=== PATIENT | male | born 2000 | race Caucasian/White ===

== ENCOUNTER 2024-10-14 15:46 | Emergency (ER) | payer OTHER, SELFPAY ==
[2024-10-14 16:06] VITALS: BP 130/63; PULSE 60; RESP 16; TEMP 36.9; O2SAT 98; BMI 25.0
--- NOTE | 2024-10-14 16:14 | DI.RAD.S_ITS ---
PROCEDURE: XR SHOULDER RT MIN 2V INDICATIONS: Fall while snowboarding, R shoulder pain and reduced ROM TECHNIQUE: 3 views of the shoulder were acquired. COMPARISON: None. FINDINGS: Bones: No acute displaced fracture or dislocation Soft tissues: No suspicious calcifications. IMPRESSION: No acute radiographic abnormality. If there is high concern for further derangement, consider MRI evaluation. Dictated by: Imtiaz Hennessy M.D. on 10/14/2024 at 16:43 Approved by: Imtiaz Hennessy M.D. on 10/14/2024 at 16:46
--- NOTE | 2024-10-14 17:12 | ED.UPPEXIN ---
HPI - Extremity Injury (Upper) <Jessica Santana PA-C - Last Filed: 10/14/24 19:36> General Chief Complaint: Extremity Injury, Upper Stated Complaint: rt shoulder px, x2days Time Seen by Provider: 10/14/24 17:10 Source: patient Mode of arrival: Ambulatory History of Present Illness HPI narrative: Mr. Romero is a pleasant 23-year-old male, active duty [place], with a past medical history of right collarbone fracture presents to the emergency department for right shoulder pain after a snowboard fall that occurred yesterday. Patient states while snowboarding he had a fall directly onto the right shoulder and has had some right shoulder pain since then. Did not come to the ER until today because he got back late last night. States that he does not have any other areas of pain or injury. Reports that right shoulder pain is on the front of the shoulder however pain is worsened with abduction of the shoulder. No pain of the right lower arm. He last took 800 mg of ibuprofen around 9:00 a.m. this morning. No other concerns at this time. Related Data Previous Rx's Medication Instructions Recorded acetaminophen 500 mg tablet 1,000 mg (2 x 500 mg) PO Q8HR #20 10/14/24 (Tylenol Extra Strength) tabs ibuprofen 600 mg tablet (IBU) 600 mg PO Q8H PRN pain #20 tabs 10/14/24 Review of Systems <Jessica Santana PA-C - Last Filed: 10/14/24 19:36> Review of Systems ROS Unobtainable: All systems reviewed & are unremarkable except as noted in HPI and below Exam <Jessica Santana PA-C - Last Filed: 10/14/24 19:36> Narrative Exam Narrative: GENERAL: 23 year old patient appears stated age. Well-developed patient, in no acute distress. HEAD: Atraumatic. Normocephalic. EYES: Extraocular motions intact. No scleral icterus. No injection or drainage. ENT: Nose without bleeding, purulent drainage. NECK: Trachea midline. Cervical ROM intact. CARDIOVASCULAR: Regular rate and rhythm. Strong radial pulses bilaterally. RESPIRATORY: ?Nonlabored respirations. ?Speaking in clear, full sentences. ?Clear to auscultation. EXTREMITIES: Tenderness to palpation of anterior right shoulder/AC joint. No obvious deformities. No tenderness to palpation of bilateral collar bones. Pain with active abduction of right shoulder, limited ROM. Passive abduction right shoulder with increased ROM. Right-sided pain with empty can test. BACK: Nontender without deformity or crepitance. No flank tenderness. NEURO: AOx3. ?Clear speech. ?Moves all 4 extremities appropriately. Sensation and strength intact in the distribution of the median, ulnar, radial nerves bilaterally. SKIN: No rash or erythema of visible areas Initial Vital Signs Initial Vital Signs: Vital Signs Temperature 98.4 F 10/14/24 16:06 Pulse Rate 60 10/14/24 16:06 Respiratory Rate 16 10/14/24 16:06 Blood Pressure 130/63 10/14/24 16:06 Pulse Oximetry 98 10/14/24 16:06 Oxygen Delivery Method Room Air 10/14/24 16:06 <January Darnell DO - Last Filed: 10/19/24 02:50> Initial Vital Signs Initial Vital Signs: Vital Signs Temperature 98.4 F 10/14/24 16:06 Pulse Rate 60 10/14/24 16:06 Respiratory Rate 16 10/14/24 16:06 Blood Pressure 130/63 10/14/24 16:06 Pulse Oximetry 98 10/14/24 16:06 Oxygen Delivery Method Room Air 10/14/24 16:06 Course <Jessica Santana PA-C - Last Filed: 10/14/24 19:36> Orders Ordered: Discontinued Medications Acetaminophen (Acetaminophen 325 Mg Tablet) 975 mg PO NOW ONE Stop: 10/14/24 17:23 Last Admin: 10/14/24 17:27 Dose: 975 mg Documented By: LICO Ibuprofen (Ibuprofen 400 Mg Tablet) 400 mg PO NOW ONE Stop: 10/14/24 17:23 Last Admin: 10/14/24 17:27 Dose: 400 mg Documented By: LICO Vital Signs Vital signs: Vital Signs - 8 hr 10/14/24 16:06 10/14/24 17:38 Temperature 98.4 F Pulse Rate 60 60 Respiratory Rate 16 16 Blood Pressure 130/63 Pulse Oximetry 98 100 Oxygen Delivery Method Room Air <January Darnell DO - Last Filed: 10/19/24 02:50> Orders Ordered: Discontinued Medications Acetaminophen (Acetaminophen 325 Mg Tablet) 975 mg PO NOW ONE Stop: 10/14/24 17:23 Last Admin: 10/14/24 17:27 Dose: 975 mg Documented By: LICO Ibuprofen (Ibuprofen 400 Mg Tablet) 400 mg PO NOW ONE Stop: 10/14/24 17:23 Last Admin: 10/14/24 17:27 Dose: 400 mg Documented By: LICO Vital Signs Vital signs: Vital Signs - 8 hr 10/14/24 16:06 10/14/24 17:38 Temperature 98.4 F Pulse Rate 60 60 Respiratory Rate 16 16 Blood Pressure 130/63 Pulse Oximetry 98 100 Oxygen Delivery Method Room Air MDM - Extremity Injury (Upper) <Jessica Santana PA-C - Last Filed: 10/14/24 19:36> Medical Records Attestation: I reviewed the patient's medical records. Imaging Data Right Shoulder X-Ray: Radiologist's Impression: PROCEDURE: XR SHOULDER RT MIN 2V INDICATIONS: Fall while snowboarding, R shoulder pain and reduced ROM TECHNIQUE: 3 views of the shoulder were acquired. COMPARISON: None. FINDINGS: Bones: No acute displaced fracture or dislocation Soft tissues: No suspicious calcifications. IMPRESSION: No acute radiographic abnormality. If there is high concern for further derangement, consider MRI evaluation. [facility] Narrative Medical decision making narrative: 23 year-old male, active duty [place], with a past medical history of right collarbone fracture presents to the emergency department for right shoulder pain after a snowboard fall that occurred yesterday. Differential diagnosis includes but is not limited to right shoulder fracture, right AC joint separation, right rotator cuff injury, shoulder sprain, shoulder strain, etc. On exam patient is in no acute distress, nontoxic appearing, vital signs within normal limits. He has some tenderness to palpation of the anterior right shoulder and pain with active abduction of the right shoulder, positive right empty can test with some reproducible pain and weakness. Right arm neurovascularly intact with sensation intact to light touch and strength intact in the distribution of the median, ulnar, radial nerves bilaterally. Right shoulder x-ray obtained in triage reveals no fracture. Concern for shoulder sprain/rotator cuff injury. Patient was placed into a right arm sling for comfort and advised to follow up with Orthopedics. He was prescribed ibuprofen and Tylenol and recommended rice therapy. First dose of ibu/apap givenin ED. Patient verbalized understanding of all information and is agreeable to the plan. He is stable for discharge home. Discharge Plan Departure Patient Disposition: Home Clinical Impression: Sprain of right shoulder Qualifiers: Encounter type: initial encounter Shoulder sprain type: unspecified sprain Qualified Code(s): S43.401A - Unspecified sprain of right shoulder joint, initial encounter Instructions: DI for Shoulder Sprain Activity Restrictions/Additional Instructions: Please take Ibuprofen (Motrin/Advil) or Acetaminophen (Tylenol) for pain. These are available over the counter. You may take Ibuprofen 600 mg every 8 hours with food for pain. You may also take Acetaminophen 650 mg every 4-6 hours for pain. Do not exceed 3000 mg of Tylenol a day as this can cause liver damage. Do not drink alcohol with either of these medications. Please use RICE therapy for your pain in addition to ibuprofen/acetaminophen. Rest the painful area. Ice the area of pain/swelling for at least 15 minutes, 4x a day. Compress the area of swelling using a brace, wrap, or splint if applied. Elevate the painful or swollen extremity by supporting it above the level of the heart with pillows when sitting or laying. Today you were evaluated for right shoulder pain. Your x-ray does not reveal any shoulder fracture. However you can still have injured her rotator cuff or other important ligaments in the shoulder. Please wear the right arm sling for comfort however you can remove this to shower and gently stretch the arm. Follow up with Orthopedics for further evaluation. You can call [facility] at [phone] to schedule an appointment with Dr. Ramirez or another physician. Please follow up with your primary care doctor within the next 2-3 days for ER follow-up. (If you do not have a PCP you can call [phone]. ?to schedule an appointment with an [facility] Primary Care Provider) IF YOU DEVELOP ANY NEW OR WORSENING SYMPTOMS, RETURN TO THE ER! Please read the attached instructions, they highlight more specific treatments and interventions for you at home. Thank you for letting me participate in your care, Jessica Santana PA-C Prescriptions: New ibuprofen [IBU] 600 mg tablet 600 mg PO Q8H PRN (Reason: pain) Qty: 20 0RF acetaminophen [Tylenol Extra Strength] 500 mg tablet 1,000 mg PO Q8HR Qty: 20 0RF Referrals: Provider,Светлана DIAZ [Primary Care Provider] - Stand Alone Forms: Patient Portal/API/Survey, Work Release Note ED Sign-out <January Darnell, DO - Last Filed: 10/19/24 02:50> Cosign ED Attending Cosignature Attestation: I was immediately available in the department for consultation.
[2024-10-14] MEDS: ACETAMINOPHEN 325 MG TABLET 975 MG PO (17:27)
[2024-10-14] MEDS: IBUPROFEN 400 MG TABLET PO (17:27)
--- NOTE | 2024-10-14 17:36 | PC.NURSE ---
Pt reports falling on shoulder while snowboarding. Pt states he is able to move his arm when isolating his shoulder. Denies pain to palpation to collar bone. No obvious deformities noted. CMS intact.
[2024-10-14 17:38] VITALS: PULSE 60; RESP 16; O2SAT 100
== END 2024-10-14 17:39 | disposition home or self-care (01) ==
PROVIDERS: Emergency Provider Physician Assistant
DX: S43.401A Unspecified sprain of right shoulder joint, initial encounter (principal); V00.311A Fall from snowboard, initial encounter
CPT/HCPCS: 73030; 99283

== ENCOUNTER 2025-01-31 08:48 | Emergency (ER) | payer OTHER, SELFPAY ==
[2025-01-31 09:00] VITALS: BP 137/59; PULSE 64; RESP 18; TEMP 36.4; O2SAT 98; BMI 26.6
[2025-01-31 09:43] LABS: RBC Urine 10-30/HPF (0-5/HPF); Urine Volume 10mL (spun)
[2025-01-31 09:44] LABS: Bacteria Urine None Seen; Culture Indicated Urine Cult Not Indicated; Squamous Epithelial Cell Urine 0-1 /HPF (0-5/HPF); WBC Urine 0-1/HPF (0-5/HPF)
--- NOTE | 2025-01-31 10:13 | ED_ITS ---
HPI - Male Genitourinary General Chief complaint: Urogenital-Male Stated complaint: blood in urine 7 days Time Seen by Provider: 01/31/25 09:39 History of Present Illness HPI Narrative: 24-year-old gentleman history of kidney stones presents with hematuria today and also we 1 week prior to this that resolved on its own then. Patient denies nausea, vomiting, fever, chills, penile discharge, testicular pain, dysuria, urgency, or frequency. Patient was able to passed kidney stones in the remote past and feels similar in presentation today. Other than what is stated 14 point review of system is negative Related Data Previous Rx's Medication Instructions Recorded acetaminophen 500 mg tablet 1,000 mg (2 x 500 mg) PO Q8HR #20 10/14/24 (Tylenol Extra Strength) tabs ibuprofen 600 mg tablet (IBU) 600 mg PO Q8H PRN pain #20 tabs 10/14/24 Allergies Allergy/AdvReac Type Severity Reaction Status Date / Time No Known Drug Allergies Allergy Verified 01/31/25 09:00 Review of Systems Review of Systems ROS Unobtainable: All systems reviewed & are unremarkable except as noted in HPI and below Patient History Social History Smoking Status: Current every day smoker Smoking Status: Current every day smoker tobacco type: cigarettes and vaping Exam Narrative Exam Narrative: GENERAL: [24] year old patient appears stated age. Well-developed patient, in mild distress. HEAD: Atraumatic. Normocephalic. EYES: Pupils equal round and reactive. Extraocular motions intact. No scleral icterus. No injection or drainage. NECK: Trachea midline. Non tender CARDIOVASCULAR: Regular rate and rhythm without murmurs, gallops, or rubs. RESPIRATORY: Clear to auscultation. Breath sounds equal bilaterally. No wheezes, rales, or rhonchi. GASTROINTESTINAL: Abdomen soft, non-tender, nondistended. EXTREMITIES: No edema or joint tenderness. BACK: Nontender without deformity or crepitance. No flank tenderness. NEURO: AOx3. SKIN: No rash or erythema of visible areas Initial Vital Signs Initial Vital Signs: Vital Signs Temperature 97.5 F L 01/31/25 09:00 Pulse Rate 64 01/31/25 09:00 Respiratory Rate 18 01/31/25 09:00 Blood Pressure 137/59 L 01/31/25 09:00 Pulse Oximetry 98 01/31/25 09:00 Oxygen Delivery Method Room Air 01/31/25 09:00 Course Orders Ordered: ED Orders 01/31/25 09:12 Chlamydia Gonorrhea PCR -URINE Stat Urine Microscopic Stat 01/31/25 10:13 CT abdomen pelvis wo con Stat 01/31/25 10:30 CBC Auto Diff [Complete Blood Count AUTO DIFF] Stat CMP [Comprehensive Metabolic Panel] Stat Ondansetron HCl (Ondansetron 4 Mg/2 Ml Inj) 4 mg IV NOW PRN PRN Reason: Nausea And Vomiting Ondansetron HCl (Ondansetron 4 Mg Odt) 4 mg SL NOW PRN PRN Reason: Nausea And Vomiting Vital Signs Vital signs: Vital Signs - 8 hr 01/31/25 09:00 Temperature 97.5 F L Pulse Rate 64 Respiratory Rate 18 Blood Pressure 137/59 L Pulse Oximetry 98 Oxygen Delivery Method Room Air MDM - Male Genitourinary Lab Data 01/31/25 10:30 01/31/25 10:30 Labs: Lab Results 01/31/25 01/31/25 Range/Units 09:12 10:30 WBC 4.6 (4.5-11.0) X10^3/uL RBC 5.11 (4.5-5.9) X10^6/uL Hgb 15.1 (13.5-17.5) g/dL Hct 44.7 (41-53) % MCV 87.4 (80-100) fL MCH 29.5 (26-34) PG MCHC 33.7 (30-36) % RDW 14.1 (11.6-14.8) % Plt Count 164 (150-400) X10^3/uL Neut % (Auto) 49.8 L (50-75) % Lymph % (Auto) 38.4 (25-40) % Logan % (Auto) 8.4 (3-14) % Eos % (Auto) 2.7 (2-4) % Baso % (Auto) 0.7 (0-2) % Neut # (Auto) 2300 (0962-5049) /uL Lymph # (Auto) 1800 (2226-3717) /uL Logan # (Auto) 400 (0-900) /uL Eos # (Auto) 100 (0-450) /uL Baso # (Auto) 0 (0-100) /uL Sodium 138 (137-145) mmol/L Potassium 4.2 (3.4-5.1) mmol/L Chloride 104 (98-107) mmol/L Carbon Dioxide 27 (22-32) mmol/L BUN 19 (9-20) mg/dL Creatinine 1.05 (0.66-1.25) mg/dL Estimated GFR > 60 (>60) mL/min BUN/Creatinine Ratio 18.1 (6-22) Glucose 85 (70-99) mg/dL Calcium 8.9 (8.4-10.2) mg/dL Total Bilirubin 0.8 (0.2-1.3) mg/dL AST 38 (17-59) IU/L ALT 33 (<50) IU/L Alkaline Phosphatase 50 (38-126) U/L Total Protein 7.1 (6.3-8.2) g/dL Albumin 4.4 (3.5-5.0) g/dL Globulin 2.7 (1.7-4.1) g/dL Albumin/Globulin Ratio 1.6 (1.0-2.8) Urine RBC 10-30/hpf H (0-5/HPF) Urine WBC 0-1/hpf (0-5/HPF) Ur Squamous Epith Cells 0-1 /hpf (0-5/HPF) Urine Bacteria None seen (None) Ur Culture Indicated? Cult not indicated Vol Urine Centrifuged 10ml (spun) Urine Dip Bedside Urine Glucose Negative Bedside Urine Bilirubin - Negative Bedside Urine Ketone - Negative Urine Specific [place] 1.015 Bedside Urine Occult Blood +++ Bedside Urine pH 6.0 Bedside Urine Protein - Negative Bedside Urine Urobilinogen - Negative Bedside Urine Nitrite - Negative Bedside Urine Leukocytes - Negative Esterase Imaging Data CT scan - abdomen/pelvis: Radiologist's Impression: [address] [address] [address] Scan Report Signed Patient: Urban Romero MR#: [id number] : 2000 Acct:[id number] Age/Sex: 24 / M Date of Service: 01/31/25 Loc: ED Accession Number: [id number] Procedure: CT abdomen pelvis wo con Ordering Provider: Victorino De Los Santos D.O. PROCEDURE: CT ABDOMEN PELVIS WO CON INDICATIONS: kidney stone TECHNIQUE: Axial sections were acquired from the lung bases to the pubic symphysis. Coronal and sagittal reformats were performed. For radiation dose reduction, the following was used: automated exposure control, adjustment of mA and/or kV according to patient size. COMPARISON: None. FINDINGS: Image quality: Diagnostic. Lower Chest: No significant findings. URINARY: Right Kidney: No stones or hydronephrosis. Right Ureter: No hydroureter. Left Kidney: No stones or hydronephrosis. Left Ureter: No hydroureter. Bladder: Normal wall thickness. No stones. ABDOMEN: Liver: No contour-deforming solid mass. Gallbladder: No radiopaque gallstones or wall thickening. Biliary ducts: No biliary dilation. Pancreas: No ductal dilation. Spleen: Size is within normal limits. Adrenal Glands: No adrenal nodules. Stomach and Bowel: Normal colonic caliber, without significant wall thickening. Normal appendix. Peritoneum: No abnormal intraperitoneal fluid. No free air. Ventral Wall: No hernia. Abdominal Nodes: No enlarged retroperitoneal or mesenteric lymph nodes. Vessels: Aorta and inferior vena cava are normal in size. PELVIS: Pelvic Organs: Unremarkable. Pelvic Nodes: Unremarkable. Miscellaneous: No inguinal hernias are seen. Bones: Unremarkable. IMPRESSION: No obstructing stones or hydronephrosis. No acute findings within the abdomen or pelvis. Dictated by: Atul Elloitt M.D. on 01/31/2025 at 10:51 Approved by: Atul Elliott M.D. on 01/31/2025 at 10:55 MDM Narrative Medical decision making narrative: All vital signs nurse triage note medication list imaging studies in all ER visits reviewed. Patient last had sexual intercourse over 2 weeks ago no penile discharge no testicular pain. Patient does work out strenuously including yesterday and he had hematuria episode x2 today starting at 6:00 a.m. STD panel sent off. Case discussed with Dr. Mooney urologist on-call who entered team differential diagnosis of December hematuria and strenuous exercise including sexual intercourse as cause of hematuria but wanted to follow up with him as outpatient for a cystoscopy. Discharge Plan Departure Patient Disposition: Home Clinical Impression: Hematuria Qualifiers: Hematuria type: idiopathic Glomerular morphologic changes: unspecified whether glomerular morphologic changes present Qualified Code(s): N02.9 - Recurrent and persistent hematuria with unspecified morphologic changes Instructions: DI for Hematuria Activity Restrictions/Additional Instructions: Return with new or worsening symptoms. Keep hydrated. Follow up with Dr. Mooney urologist for outpatient cystoscopy. Prescriptions: No Action ibuprofen [IBU] 600 mg tablet 600 mg PO Q8H PRN (Reason: pain) Qty: 20 0RF acetaminophen [Tylenol Extra Strength] 500 mg tablet 1,000 mg PO Q8HR Qty: 20 0RF Referrals: Provider,Светлана DIAZ [Primary Care Provider] - Kris Mooney MD [Physician] - (hematuria) Stand Alone Forms: Patient Portal/API/Survey
[2025-01-31 10:49] LABS: Add Manual Diff / Slide Review NO; Basophils Absolute Auto 0 /uL (0-100); Basophils Percent Auto 0.7 % (0-2); Eosinophils Absolute Auto 100 /uL (0-450); Eosinophils Percent Auto 2.7 % (2-4); Hematocrit 44.7 % (41-53); Hemoglobin 15.1 g/dL (13.5-17.5); Lymphocytes Absolute Auto 1800 /uL (1100-4500); Lymphocytes Percent Auto 38.4 % (25-40); Mean Corpuscular HGB Conc 33.7 % (30-36); Mean Corpuscular Hemoglobin 29.5 PG (26-34); Mean Corpuscular Volume 87.4 fL (80-100); Monocytes Absolute Auto 400 /uL (0-900); Monocytes Percent Auto 8.4 % (3-14); Neutrophils Absolute Auto 2300 /uL (1500-7000); Neutrophils Percent Auto 49.8 % (50-75); Platelet Count 164 X10^3/uL (150-400); Red Blood Cell Count 5.11 X10^6/uL (4.5-5.9); Red Cell Distribution Width 14.1 % (11.6-14.8); White Blood Cell Count 4.6 X10^3/uL (4.5-11.0)
[2025-01-31 11:11] LABS: Alanine Aminotransferase 33 IU/L (<50); Albumin 4.4 g/dL (3.5-5.0); Albumin Globulin Ratio 1.6 (1.0-2.8); Alkaline Phosphatase 50 U/L (38-126); Aspartate Aminotransferase 38 IU/L (17-59); BUN Creatinine Ratio 18.1 (6-22); Bilirubin Total 0.8 mg/dL (0.2-1.3); Blood Urea Nitrogen 19 mg/dL (9-20); Calcium 8.9 mg/dL (8.4-10.2); Carbon Dioxide 27 mmol/L (22-32); Chloride 104 mmol/L (98-107); Estimated Glomerular Filt Rate > 60 mL/min (>60); Globulin 2.7 g/dL (1.7-4.1); Glucose 85 mg/dL (70-99); HEMOLYSIS < 15 (0-50); Potassium 4.2 mmol/L (3.4-5.1); Sodium 138 mmol/L (137-145); Total Protein 7.1 g/dL (6.3-8.2)
[2025-01-31 12:07] VITALS: BP 137/73; PULSE 60; RESP 18; O2SAT 99
[2025-01-31 13:14] LABS: Urine N gonorrhoeae NOT DETECTED
[2025-01-31 13:15] LABS: Urine Chlamydia NOT DETECTED
== END 2025-01-31 12:08 | disposition home or self-care (01) ==
PROVIDERS: Emergency Provider Family Medicine
DX: N02.9 Recurrent and persistent hematuria with unspecified morphologic changes (principal); Z87.442 Personal history of urinary calculi
CPT/HCPCS: 36415; 74176; 80053; 81003; 81015; 85025; 87491; 87591; 99281; 99284

== ENCOUNTER 2025-02-02 10:52 | Emergency (ER) | payer OTHER, SELFPAY ==
[2025-02-02 10:57] VITALS: BP 142/65; PULSE 72; RESP 17; TEMP 36.6; O2SAT 97; BMI 26.6
[2025-02-02 11:17] LABS: Add Manual Diff / Slide Review NO; Basophils Absolute Auto 0 /uL (0-100); Basophils Percent Auto 0.5 % (0-2); Eosinophils Absolute Auto 100 /uL (0-450); Eosinophils Percent Auto 1.4 % (2-4); Hematocrit 45.8 % (41-53); Hemoglobin 15.5 g/dL (13.5-17.5); Lymphocytes Absolute Auto 1100 /uL (1100-4500); Lymphocytes Percent Auto 28.9 % (25-40); Mean Corpuscular HGB Conc 33.9 % (30-36); Mean Corpuscular Hemoglobin 29.7 PG (26-34); Mean Corpuscular Volume 87.6 fL (80-100); Monocytes Absolute Auto 200 /uL (0-900); Monocytes Percent Auto 4.5 % (3-14); Neutrophils Absolute Auto 2500 /uL (1500-7000); Neutrophils Percent Auto 64.7 % (50-75); Platelet Count 163 X10^3/uL (150-400); Red Blood Cell Count 5.22 X10^6/uL (4.5-5.9); Red Cell Distribution Width 14.2 % (11.6-14.8); White Blood Cell Count 3.8 X10^3/uL (4.5-11.0)
[2025-02-02 11:32] LABS: Alanine Aminotransferase 33 IU/L (<50); Albumin 4.7 g/dL (3.5-5.0); Albumin Globulin Ratio 1.7 (1.0-2.8); Alkaline Phosphatase 51 U/L (38-126); Aspartate Aminotransferase 36 IU/L (17-59); Bilirubin Total 0.9 mg/dL (0.2-1.3); Blood Urea Nitrogen 17 mg/dL (9-20); Calcium 9.4 mg/dL (8.4-10.2); Carbon Dioxide 29 mmol/L (22-32); Chloride 101 mmol/L (98-107); Estimated Glomerular Filt Rate > 60 mL/min (>60); Globulin 2.8 g/dL (1.7-4.1); Glucose 102 mg/dL (70-99); HEMOLYSIS < 15 (0-50); Lipase 50 U/L (23-300); Potassium 4.1 mmol/L (3.4-5.1); Sodium 139 mmol/L (137-145); Total Protein 7.5 g/dL (6.3-8.2)
--- NOTE | 2025-02-02 12:01 | DI.US.S_ITS ---
PROCEDURE: US SCROTUM INDICATIONS: right testicle pain and hematuria TECHNIQUE: Real-time scanning was performed of the scrotum and testicles, with image documentation. Color and pulse Doppler interrogation was performed of both testicles. COMPARISON: None. FINDINGS: Right: Testicle is normal in size at 4.4 x 2.4 x 2.9 cm, and homogenous in echotexture. Epididymis is normal in overall size and morphology. No hydrocele or varicoceles. Overlying scrotal skin is normal in thickness. Left: Testicle is normal in size at 4.3 by 1.7 x 3.0 cm, and homogeneous in echotexture. Epididymis is normal in overall size and morphology. No hydrocele or varicoceles. Overlying scrotal skin is normal in thickness. Scrotal tiffany is incidentally noted. Doppler: Color and pulse Doppler demonstrate normal and symmetric arterial flow in both testicles. IMPRESSION: No torsion at time of exam. Intermittent torsion cannot be excluded. No hydrocele. Dictated by: Mary De Santiago M.D. on 02/02/2025 at 13:21 Approved by: Mary De Santiago M.D. on 02/02/2025 at 13:22
--- NOTE | 2025-02-02 12:02 | DI.US.S_ITS ---
PROCEDURE: US ABDOMEN LIMITED INDICATIONS: RUQ pain TECHNIQUE: Real-time focused scanning was performed of the abdomen, with image documentation. COMPARISON: [facility], CT, CT ABDOMEN PELVIS WO CON, 01/31/2025, 10:30. FINDINGS: Liver measures 16.3 cm. Gallbladder is unremarkable. No stones or wall thickening. Common bile duct measures 3 mm. Visualized portions the pancreas are unremarkable. IMPRESSION: Unremarkable exam. Dictated by: Mary De Santiago M.D. on 02/02/2025 at 13:23 Approved by: Mary De Santiago M.D. on 02/02/2025 at 13:23
[2025-02-02 12:17] LABS: Bacteria Urine None Seen; Culture Indicated Urine Cult Not Indicated; RBC Urine 1-5/HPF (0-5/HPF); Squamous Epithelial Cell Urine 0-1 /HPF (0-5/HPF); Urine Volume 10mL (spun); WBC Urine None Seen (0-5/HPF)
--- NOTE | 2025-02-02 14:23 | ED_ITS ---
HPI - Male Genitourinary General Chief complaint: Urogenital-Male Stated complaint: Blood in urine Time Seen by Provider: 02/02/25 13:53 History of Present Illness HPI Narrative: Patient is a 24-year-old male here for follow-up of hematuria. Patient reports symptoms for at least 2 weeks. He was evaluated on 01/31 for similar symptoms and workup was unremarkable including STD testing, CT KUB. He does have a history of a prior kidney stone that he passed on his own. He reports being a small clot of blood on the and then again yesterday. He also reports right testicular pain also ongoing for the last 2 weeks. He denies any foreign body in the penis. He denies fever. He denies any nausea/vomiting/abdominal pain/diarrhea. No history of STDs. Patient was told to follow up with his PCP for referral to a urologist and is in the process of getting that referral. Related Data Previous Rx's Medication Instructions Recorded acetaminophen 500 mg tablet 1,000 mg (2 x 500 mg) PO Q8HR #20 10/14/24 (Tylenol Extra Strength) tabs ibuprofen 600 mg tablet (IBU) 600 mg PO Q8H PRN pain #20 tabs 10/14/24 Allergies Allergy/AdvReac Type Severity Reaction Status Date / Time No Known Drug Allergies Allergy Verified 02/02/25 11:01 Review of Systems Review of Systems ROS Unobtainable: All systems reviewed & are unremarkable except as noted in HPI and below Patient History tobacco type: cigarettes and vaping Exam Narrative Exam Narrative: Focused physical exam as follows: General: Well developed, well nourished HEENT: pink palpebral conjunctiva, anicteric sclera, ALFREDO, moist mucous membranes Lungs; no respiratory distress, clear to auscultation without wheezes or crackles; equal breath sounds Heart: normal rate, regular rhythm, no appreciable murmurs Abdomen: soft, nontender, no rebound or rigidity Genitalia: no penile discharge or blood from urethral meatus; no inguinal masses; no testicular masses; no scrotal edema Extremities: no pedal edema Neuro: AAOx3, GCS 15, nonfocal exam Psyche: no SI/HI, normal affect Initial Vital Signs Initial Vital Signs: Vital Signs Temperature 98 F 02/02/25 10:57 Pulse Rate 72 02/02/25 10:57 Respiratory Rate 17 02/02/25 10:57 Blood Pressure 142/65 H 02/02/25 10:57 Pulse Oximetry 97 02/02/25 10:57 Oxygen Delivery Method Room Air 02/02/25 10:57 Course Course Course Narrative: Pt interviewed and examined. Prior ER notes including imaging studies and labs reviewed - unremarkable including CT KUB, STD testing. No evidence of UTI. US of testicles/scrotum/abdomen ordered - negative. Discussed reassuring work up thus far and plan of care. Stable for discharge. He is supposed to follow up with his PCP for urology referral. Orders Ordered: ED Orders 02/02/25 11:08 Complete Blood Count AUTO DIFF Stat Comprehensive Metabolic Panel Stat Lipase Stat 02/02/25 11:55 Urine Microscopic Stat 02/02/25 12:01 US scrotum Stat 02/02/25 12:02 US abdomen limited Stat Ondansetron HCl (Ondansetron 4 Mg/2 Ml Inj) 4 mg IV NOW PRN PRN Reason: Nausea And Vomiting Ondansetron HCl (Ondansetron 4 Mg Odt) 4 mg PO NOW PRN PRN Reason: Nausea And Vomiting Vital Signs Vital signs: Vital Signs - 8 hr 02/02/25 10:57 Temperature 98 F Pulse Rate 72 Respiratory Rate 17 Blood Pressure 142/65 H Pulse Oximetry 97 Oxygen Delivery Method Room Air MDM - Male Genitourinary Differential Diagnosis Differential diagnosis: Likely urinary tract infection, urethritis, epididymitis, prostatitis, inguinal hernia and other (hydrocele/cystocele, varicocele) Medical Records Attestation: I reviewed the patient's medical records. Lab Data Attestation: I reviewed the patient's lab results. 02/02/25 11:08 02/02/25 11:08 Labs: Lab Results 02/02/25 02/02/25 Range/Units 11:08 11:55 WBC 3.8 L (4.5-11.0) X10^3/uL RBC 5.22 (4.5-5.9) X10^6/uL Hgb 15.5 (13.5-17.5) g/dL Hct 45.8 (41-53) % MCV 87.6 (80-100) fL MCH 29.7 (26-34) PG MCHC 33.9 (30-36) % RDW 14.2 (11.6-14.8) % Plt Count 163 (150-400) X10^3/uL Neut % (Auto) 64.7 (50-75) % Lymph % (Auto) 28.9 (25-40) % [place] % (Auto) 4.5 (3-14) % Eos % (Auto) 1.4 L (2-4) % Baso % (Auto) 0.5 (0-2) % Neut # (Auto) 2500 (3358-5335) /uL Lymph # (Auto) 1100 (8368-3516) /uL [place] # (Auto) 200 (0-900) /uL Eos # (Auto) 100 (0-450) /uL Baso # (Auto) 0 (0-100) /uL Sodium 139 (137-145) mmol/L Potassium 4.1 (3.4-5.1) mmol/L Chloride 101 (98-107) mmol/L Carbon Dioxide 29 (22-32) mmol/L BUN 17 (9-20) mg/dL Creatinine 1.06 (0.66-1.25) mg/dL Estimated GFR > 60 (>60) mL/min BUN/Creatinine Ratio 16.0 (6-22) Glucose 102 H (70-99) mg/dL Calcium 9.4 (8.4-10.2) mg/dL Total Bilirubin 0.9 (0.2-1.3) mg/dL AST 36 (17-59) IU/L ALT 33 (<50) IU/L Alkaline Phosphatase 51 (38-126) U/L Total Protein 7.5 (6.3-8.2) g/dL Albumin 4.7 (3.5-5.0) g/dL Globulin 2.8 (1.7-4.1) g/dL Albumin/Globulin Ratio 1.7 (1.0-2.8) Lipase 50 (23-300) U/L Urine RBC 1-5/hpf D (0-5/HPF) Urine WBC None seen (0-5/HPF) Ur Squamous Epith Cells 0-1 /hpf (0-5/HPF) Urine Bacteria None seen (None) Ur Culture Indicated? Cult not indicated Vol Urine Centrifuged 10ml (spun) Urine Dip Bedside Urine Glucose Negative Bedside Urine Bilirubin - Negative Bedside Urine Ketone - Negative Urine Specific [place] 1.010 Bedside Urine Occult Blood ++ Bedside Urine pH 6.5 Bedside Urine Protein - Negative Bedside Urine Urobilinogen - Negative Bedside Urine Nitrite - Negative Bedside Urine Leukocytes - Negative Esterase Discharge Plan Departure Patient Disposition: Home Clinical Impression: Hematuria Qualifiers: Hematuria type: gross Qualified Code(s): R31.0 - Gross hematuria Instructions: DI for Hematuria Activity Restrictions/Additional Instructions: Work up today was generally reassuring with no serious causes of your blood in your urine. Contact your PCP to get referral to urology as previously recommended. Take Tylenol or Ibuprofen as needed for pain. Return to the ER iif with heavy bloody urine, worsening abdominal pain, nausea, vomiting or fever. Prescriptions: No Action ibuprofen [IBU] 600 mg tablet 600 mg PO Q8H PRN (Reason: pain) Qty: 20 0RF acetaminophen [Tylenol Extra Strength] 500 mg tablet 1,000 mg PO Q8HR Qty: 20 0RF Referrals: ProviderСветлана [Primary Care Provider] - Stand Alone Forms: Patient Portal/API/Survey
[2025-02-02 14:46] VITALS: BP 136/74; PULSE 77; RESP 16; O2SAT 97
== END 2025-02-02 14:47 | disposition home or self-care (01) ==
PROVIDERS: Emergency Medicine; Emergency Provider Emergency Medicine
DX: N50.811 Right testicular pain (principal); R31.0 Gross hematuria
CPT/HCPCS: 36415; 76705; 76870; 80053; 81003; 81015; 83690; 85025; 93975; 99283